=== PATIENT | male | born 1995 | race Caucasian/White ===

== ENCOUNTER 2017-04-07 23:49 | Emergency (ER) | payer SELFPAY ==
[~2017-04-07] VITALS: Ht 180.3 cm; Wt 127.0 kg
[2017-04-07 23:51] VITALS: BP 114/61
== END 2017-04-08 00:53 | disposition left against medical advice (07) ==
LOC: ER 23:49
DX: T40.1X1A Poisoning by heroin, accidental (unintentional), initial encounter (principal); Y92.89 Other specified places as the place of occurrence of the external cause
CPT/HCPCS: 99283